=== PATIENT | male | born 1965 | race Caucasian/White ===

== ENCOUNTER 2023-04-21 02:34 | Emergency (ER) | payer MEDICAID, SELFPAY ==
--- NOTE | 2023-04-21 | ECG_ITS ---
Test Reason : SOB Blood Pressure : / mmHG Vent. Rate : 092 BPM Atrial Rate : 092 BPM P-R Int : 148 ms QRS Dur : 094 ms QT Int : 404 ms P-R-T Axes : 066 026 060 degrees QTc Int : 499 ms Artifact in tracing Normal sinus rhythm Prolonged QT Abnormal ECG No previous ECGs available Referred By: Generic ED Physician Electronically Signed By:SARA OLSEN
--- NOTE | ~2023-04-21 | XR_ITS ---
EXAMINATION: XR CHEST CLINICAL INFORMATION: Shortness of breath. COMPARISON: None available. TECHNIQUE: Frontal view of the chest was obtained. FINDINGS: No significant abnormality is noted involving the heart, lungs, mediastinum, bony thorax or soft tissues. XR/XR chest 1V IMPRESSION: Unremarkable examination.
[2023-04-21 02:46] VITALS: BP 154/83; PULSE 112; RESP 19; TEMP 37.1; O2SAT 97; BMI 28.7
--- OUTSIDE RECORDS SUMMARY | 2023-04-21 03:00 | XMS_ITS | Continuity of Care Document ---
Author Name Unknown Organization [facility] Address [address] [place] [address]- Care Team Providers Care Adjunct Writing Instructor Name Role Phone Sourav PAL, Jose Eldridge Primary Care Physician [id number] Date(s): 09/16/21 - 10/21/21 [facility] [address] [place], [place] [id number]- Attending Physician: Bryson Jeffrey MD Admitting Physician: Bryson Jeffrey MD Referring Physician: Nadine Diallo DO Allergies, Adverse Reactions, Alerts Substance Reaction Severity Status codeine DIFFICUTY BREATHING Active Valium Active Ultram Active Vicodin Active traMADol Active Medications Carafate 1 gm oral tablet 1 tablet = 1 Gm, By Mouth, 3 times a day before meals and bedtime, # 90 tablet, 2 Refills, Maintenance, 12/09/14 12:54:10 Start Date: 12/09/14 Status: Ordered Depakote ER 500 mg oral tablet, extended release 3, Daily at bedtime, 0 Refills, Maintenance Start Date: 08/17/11 Status: Ordered Doculase 100 mg oral capsule 1 capsule = 100 mg, By Mouth, 2 times a day, PRN for constipation, # 6 capsule, 0 Refills, Maintenance, 12/16/14 14:02:55, Capsule Start Date: 12/16/14 Stop Date: 12/19/14 Status: Ordered Elavil Tablet 75 mg, By Mouth, Daily at bedtime, Maintenance, 12/08/14 2:06:29 Start Date: 12/08/14 Status: Ordered Flexeril 10 mg oral tablet 1 tablet = 10 mg, By Mouth, Daily at bedtime, 0 Refills, Maintenance Start Date: 08/17/11 Status: Ordered Minipress 2 mg oral capsule 1 capsule = 2 mg, By Mouth, Daily, 0 Refills, Maintenance, 08/17/15 2:05:58 Start Date: 12/08/14 Status: Ordered Protonix 40 mg oral delayed release tablet 1 tablet = 40 mg, By Mouth, 2 times a day, # 60 tablet, 2 Refills, Maintenance, 12/09/14 12:53:17 Start Date: 12/09/14 Status: Ordered Zoloft 100 mg oral tablet 1 tablet = 100 mg, By Mouth, Daily, # 30 tablet, 0 Refills, Maintenance, 12/08/14 2:06:46, Tablet Start Date: 12/08/14 Status: Ordered
--- OUTSIDE RECORDS SUMMARY | 2023-04-21 03:00 | XMS_ITS | Continuity of Care Document ---
Author Name Unknown Organization [facility] Address [address] [place] [address] Care Team Providers Care Environmental Programs Specialist Name Role Phone Sourav PAL, Jose Eldridge Primary Care Physician [phone] [place] [facility] [place] 09/15/21 - 01/08/22 [facility] [address] [place] [address]- Attending Physician: Igor Montemayor MD Admitting Physician: Igor Montemayor MD Referring Physician: Nadine Diallo DO Allergies, Adverse Reactions, Alerts Substance Reaction Severity Status codeine DIFFICUTY BREATHING Active Valium Active Vicodin Active traMADol Active Ultram Active Medications Carafate 1 gm oral tablet [...] mg, By Mouth, Daily, 0 Refills, Maintenance, 12/08/14 2:05:58 Start Date: 12/08/14 Status: Ordered Protonix [...] 2:06:46, Tablet Start Date: 12/08/14 Status: Ordered Care Team Personnel Name: Jose Benjamin MD Address: [address] [place] [address] [address] [place], [place] [address]
--- OUTSIDE RECORDS SUMMARY | 2023-04-21 03:00 | XMS_ITS | Continuity of Care Document ---
Author Name Unknown Organization [facility] Address [address] [place] [address]- Care Team Providers Care Chaser Apprentice Name Role Phone Sourav PAL, Jose Eldridge Primary Care Physician Encounter [facility] [place] Date(s): 12/09/21 - 01/08/22 [facility] [address] [place] [address]- Attending Physician: Raudel Barnett Admitting Physician: AdmtrRaudel Referring Physician: Admtr, Ar8 Allergies, Adverse Reactions, Alerts Substance Reaction Severity [...] 12/08/14 Status: Ordered Care Team Personnel Name: Sourav PAL, Jose Eldridge Address: [address] [place] [address] [address] [place], [place] [address]
--- OUTSIDE RECORDS SUMMARY | 2023-04-21 03:00 | XMS_ITS | Continuity of Care Document ---
Author Name Unknown Organization [facility] Address Unknown Care Team Providers Care Termite Control Technician Name Role Phone Sourav PAL, Jose Eldridge Primary Care Physician [phone] [place] [facility] [place] 09/13/21 - 10/13/21 [facility] Allergies, Adverse Reactions, Alerts Substance Reaction Severity [...]
--- OUTSIDE RECORDS SUMMARY | 2023-04-21 03:00 | XMS_ITS | Continuity of Care Document ---
Author Name Unknown Organization [facility] Address [address] [address] Care Team Providers Care Air Traffic Controller Center Name Role Phone Jose Benjamin MD Primary Care Physician Encounter [facility] [place] Date(s): 05/10/22 - 06/09/22 [facility] [address] [place] [id number] Attending Physician: Raudel Barnett Admitting Physician: AdmtrRaudel [...] 2:06:46, Tablet Start Date: 12/08/14 Status: Ordered Patient Care team information Care Team Personnel Name: Sourav PAL, Jose Eldridge Position: [facility] Infectious Disease MD Member Role: PCP Address: Address: [address] [place] [address] [address] [place] [address]- Name: Susanne Cuadra RN Position: [facility] ED RN W/OE and Tasks Member Role: Primary Care Nurse Care Team Related Persons Name: WALDO HARMAN Address: home [address] [place] [address]
--- OUTSIDE RECORDS SUMMARY | 2023-04-21 03:00 | XMS_ITS | Continuity of Care Document ---
Author Name Unknown Organization [facility] Address [address] [place] [address]- Care Team Providers Care Dairy Clerk Name Role Phone Sourav PAL, Jose Eldridge Primary Care Physician [phone] [place] [facility] [place]): [place]21 [facility] [address] [place] [address]- Attending Physician: Raudel Barnett Admitting Physician: Raudel Barnett Referring Physician: AdmtrRaudel Allergies, Adverse Reactions, Alerts Substance Reaction Severity [...]
--- OUTSIDE RECORDS SUMMARY | 2023-04-21 03:00 | XMS_ITS | Continuity of Care Document ---
Author Name Unknown Organization [facility] Address [address] [place] [phone]- Care Team Providers Care Lead Principal Technical Architect Name Role Phone Sourav PAL, Jose Eldridge Primary Care Physician [phone] Encounter [facility] [place] Date(s): 09/15/21 - 10/15/21 [facility] [address] [place] [address]- Allergies, Adverse Reactions, Alerts Substance Reaction Severity [...]
[2023-04-21 03:02] LABS: MANUAL DIFF FLAG NO
[2023-04-21 03:04] LABS: Basophils Absolute Auto 0.1 X10*3/uL (0.0-0.2); Basophils Percent Auto 0.5 % (0-2); Eosinophils Absolute Auto 0.2 X10*3/uL (0.0-0.4); Eosinophils Percent Auto 0.9 % (0-4); Hemoglobin 12.3 g/dl (14.0-18.0); Imm Gran Abs Auto 0.05 X10*3/uL (0.00-0.03); Imm Gran Pct Auto 0.3 % (0.0-0.4); Lymphocytes Percent Auto 16.4 % (20-40); Mean Corpuscular HGB Conc 33.2 g/dl (31.0-36.0); Mean Corpuscular Hemoglobin 29.9 pg (27.0-33.0); Mean Corpuscular Volume 89.8 fL (80.0-98.0); Mean Platelet Volume 10.7 fL (9.4-12.4); Monocytes Absolute Auto 0.7 X10*3/uL (0.1-1.2); Monocytes Percent Auto 3.6 % (2-11); Neutrophils Absolute Auto 14.2 x10*3/uL (2.0-8.3); Neutrophils Percent Auto 78.3 % (45-73); Platelet Count 240 X10*3/uL (160-400); Red Blood Count 4.12 X10*6/uL (4.60-5.80); Red Cell Distribution Width 13.2 % (11.0-16.0); White Blood Count 18.2 X10*3/uL (4.8-10.8)
[2023-04-21 03:21] LABS: Alanine Aminotransferase 16 U/L (0-40); Albumin Level 4.1 g/dL (3.5-5.0); Alkaline Phosphatase 56 U/L (39-117); Anion Gap 16 (12-20); Aspartate Amino Transferase 22 U/L (5-37); Bilirubin Total 0.5 mg/dL (0.0-1.0); Blood Urea Nitrogen 16 mg/dL (9-16); Calcium 9.5 mg/dL (8.4-10.2); Carbon Dioxide 27 mmol/L (22-29); Chloride 104 mmol/L (96-108); Creatinine Clr Calc Pharmacy 81.9; Estimated Glomerular Filt Rate > 60; Glucose Random 120 mg/dL (60-115); Potassium 4.7 mmol/L (3.3-5.1); Sodium 142 mmol/L (135-145); Total Protein 7.6 g/dL (6.5-8.0)
[2023-04-21 03:29] LABS: Troponin-I High Sensitivity < 2.7 ng/L (<3.5-35.0)
[2023-04-21 03:40] LABS: Influenza A PCR NEGATIVE (Negative); Influenza B PCR NEGATIVE (Negative); Resp Syncy Virus RNA Qual PCR NEGATIVE (Negative); SARS COV2 PCR INHOUSE NEGATIVE (Negative)
--- NOTE | 2023-04-21 04:37 | ED_ITS ---
HPI - SOB/Dyspnea General Chief Complaint: Dyspnea Stated Complaint: drooling, difficult breathing, tremors, cold Time Seen by Provider: 04/21/23 04:32 Source: patient and family Mode of arrival: ambulatory Limitations: no limitations History of Present Illness HPI Narrative: Patient comes to the emergency room accompanied by her daughter. Patient reports that he has been having cough and shortness of breath for the last couple of days, today patient states that he had sudden onset of shortness of breath around 01:55. Patient denies any chest pain. Patient eyes any fever or chills Related Data Previous Rx's Medication Instructions Recorded albuterol sulfate 90 mcg/actuation 2 puff inhalation Q4-6H PRN 04/21/23 aerosol inhaler shortness of breath or wheezing #8.5 grams prednisone 50 mg tablet 50 mg PO DAILY #4 tabs 04/21/23 Allergies Allergy/AdvReac Type Severity Reaction Status Date / Time naproxen [NAPROXEN] Allergy Unknown UNKNOWN Verified 04/21/23 02:48 From FLEXERIL Allergy Mild RASH Uncoded 01/09/20 15:35 Review of Systems 2 Review of Systems: Constitutional : No Weight loss, No Fever, No Chills, No Night Sweats, No Fatigue, No Malaise ENT/Mouth : No Hearing loss, No Ear Pain, No Nasal Congestion, No Sinus Pain, No Hoarseness, No sore throat, No Rhinorrhea, No Swallowing Difficulty Eyes: No Eye Pain, No Swelling, No Redness, No Foreign Body, No Discharge, No Vision Changes Cardiovascular : No Chest Pain, No SOB, No Dyspnea on Exertion, No Orthopnea, No Edema, No Palpitations Respiratory : Complaining of cough, wheezing and shortness of breath and chest tightness but no chest pain Gastrointestinal : No Nausea, No Vomiting, No Diarrhea, No Constipation, No abdominal Pain, No Hematochezia, No Melena Genitourinary : no irregular bleeding, No Dysuria, No Urinary Frequency, No Hematuria, No Urinary Incontinence, No Urgency, No Flank Pain, No Urinary Flow Changes, No Hesitancy Musculoskeletal : No joint pain, No Myalgias, No Joint Swelling Skin : No Skin Lesions, No rash Neuro : No Weakness, No Numbness, No Paresthesias, No Loss of Consciousness, No Dizziness, No Headache Psych : No Anxiety/Panic, No Depression, No SI/HI/AH/VH, No Social Issues, Heme/Lymph: No Bruising, No Bleeding,No Lymphadenopathy Endocrine : No Polyuria, No Polydipsia, No Temperature Intolerance [facility] Past Medical History Medical History COPD (chronic obstructive pulmonary disease) Social History Social History Smoked in Last 30 Days: Yes Use of substances other than those prescribed or required for medical reasons: No Substance Use Type Other:: methadone Advance Directives: No Advance Directives Information Provided: Yes Physical Exam 2 Vital Signs: Vital Signs: Last Vital Signs Temp 98.9 F 04/21/23 05:00 Pulse 80 04/21/23 05:00 Resp 20 04/21/23 05:00 BP 125/52 L 04/21/23 05:00 Pulse Ox 93 04/21/23 05:00 O2 Del Method Room Air 04/21/23 05:00 BMI result Body Mass Index 28.7 Const: Other: Appearance: Alert. Oriented X3. No acute distress. Eyes: Pupils equal, round and reactive to light. ENT: Pharynx normal. Neck: Normal inspection. Neck supple. No lymph nodes noted. No crepitus CVS: Normal heart rate and rhythm. Pulses normal. Normal S1 and S2 Respiratory: Decreased breath sounds, wheezing Abdomen: Soft and nontender. No rigidity. No distention. Skin: Skin warm and dry. Normal skin color. Normal skin turgor. Extremities: No lower extremity edema. No Lacerations. No Rash Neuro: Oriented X 3. No motor deficit. No sensory deficit. Moving all extremities. No slurred speech. CN 2 through 12 grossly intact Psych: calm, cooperative, normal affect Medications Administered Generic Name Dose Route Start Last Admin Trade Name Freq PRN Reason Stop Dose Admin Magnesium Sulfate 2 gm in 50 mls @ 25 mls/hr 04/21/23 04:36 04/21/23 04:56 Magnesium Sulfate/H2o IV 04/21/23 06:35 25 mls/hr ONCE ONE Administration Discontinued Medications Generic Name Dose Route Start Last Admin Trade Name Freq PRN Reason Stop Dose Admin Albuterol Sulfate 10 mg 04/21/23 04:36 04/21/23 04:48 Albuterol Sulfate (0.083%) 2.5 Mg/3 Ml Vial.Neb INHALE 04/21/23 04:37 10 mg ONCE ONE Administration Methylprednisolone Sodium Succinate 125 mg 04/21/23 04:36 04/21/23 04:56 Methylprednisolone Sod Succ 125 Mg/2 Ml Vial IVPUSH 04/21/23 04:37 125 mg ONCE ONE Administration Medical Decision Making Medical Decision Making [facility] Narrative: -my interpretation of labs: White blood cell count 18.2., normal chemistry, normal serology, negative for influenza RSV and COVID -my interpretation of chest x-ray: No infiltrates -patient feeling much better after nebulization treatment and IV meds. Patient was walked around the emergency room, oxygen saturation steady 90%. Patient denies any shortness of breath. On physical exam patient has minimal wheezing but now he is moving air much better than earlier today. Patient states that he feels ready to be discharged. Differential Diagnosis Differential Diagnoses: The differential diagnosis associated with the presentation includes (Asthma, chronic lung disease, pneumonia) Admission/Observation Consideration of admission/observation: Escalation of care including admission/observation considered (Given patient's presentation on arrival and history, admission was considered) Lab Data [facility] Lab Attestation statement: I reviewed the patient's lab results. 04/21/23 02:57 04/21/23 02:57 Labs: Lab Results 04/21/23 04/21/23 Range/Units 02:57 04:48 WBC 18.2 H (4.8-10.8) X10*3/uL RBC 4.12 L (4.60-5.80) X10*6/uL Hgb 12.3 L (14.0-18.0) g/dl Hct 37.0 L (42.0-52.0) % MCV 89.8 (80.0-98.0) fL MCH 29.9 (27.0-33.0) pg MCHC 33.2 (31.0-36.0) g/dl RDW 13.2 (11.0-16.0) % Plt Count 240 (160-400) X10*3/uL MPV 10.7 (9.4-12.4) fL Immature Gran % (Auto) 0.3 (0.0-0.4) % Neut % (Auto) 78.3 H (45-73) % Lymph % (Auto) 16.4 L (20-40) % [place] % (Auto) 3.6 (2-11) % Eos % (Auto) 0.9 (0-4) % Baso % (Auto) 0.5 (0-2) % Lymph # (Auto) 3.0 (1.2-4.9) X10*3/uL [place] # (Auto) 0.7 (0.1-1.2) X10*3/uL Eos # (Auto) 0.2 (0.0-0.4) X10*3/uL Baso # (Auto) 0.1 (0.0-0.2) X10*3/uL Abs Immat Gran (auto) 0.05 H (0.00-0.03) X10*3/uL Absolute Neuts (auto) 14.2 H (2.0-8.3) x10*3/uL Absolute Nucleated RBC 0.000 (0.0-0.012) X10*3/uL Nucleated RBC % (auto) 0.0 (0.0-0.2) /100WBC Sodium 142 (135-145) mmol/L Potassium 4.7 (3.3-5.1) mmol/L Chloride 104 (96-108) mmol/L Carbon Dioxide 27 (22-29) mmol/L Anion Gap 16 (12-20) BUN 16 (9-16) mg/dL Creatinine 1.10 (0.5-1.4) mg/dL Estim Creat Clear Calc 81.9 Estimated GFR > 60 Random Glucose 120 H (60-115) mg/dL Calcium 9.5 (8.4-10.2) mg/dL Total Bilirubin 0.5 (0.0-1.0) mg/dL AST 22 (5-37) U/L ALT 16 (0-40) U/L Alkaline Phosphatase 56 (39-117) U/L Troponin I High Sens < 2.7 (<3.5-35.0) ng/L Total Protein 7.6 (6.5-8.0) g/dL Albumin 4.1 (3.5-5.0) g/dL Urine Color Yellow Urine Appearance Clear Urine pH 6.5 (5.0-9.0) Ur Specific [place] 1.020 (1.005-1.025) Urine Protein Negative (Neg-Trace) mg/dL Urine Glucose (UA) Negative (Negative) mg/dL Urine Ketones Negative (Negative) mg/dL Urine Blood Negative (Negative) Urine Nitrite Negative (Negative) Ur Leukocyte Esterase Negative (Negative) Urine Opiates Screen POSITIVE H (Not Detect) Urine Fentanyl Screen POSITIVE H (Not Detect) Ur Barbiturates Screen Not Detected (Not Detect) Ur Phencyclidine Scrn Not Detected (Not Detect) Ur Amphetamines Screen Not Detected (Not Detect) U Benzodiazepines Scrn POSITIVE H (Not Detect) Urine Cocaine Screen POSITIVE H (Not Detect) U Marijuana (THC) Screen Not Detected (Not Detect) Influenza Type A (PCR) NEGATIVE (Negative) Influenza Type B (PCR) NEGATIVE (Negative) RSV RNA Qual (PCR) NEGATIVE (Negative) SARS-CoV-2 RNA (RT-PCR) NEGATIVE (Negative) Independent Interpretation I performed an independent interpretation of an: Plain X-Ray Radiology Impression Discussion of test interpretation with radiology: I have reviewed the radiologist's reading. Radiologist Impression: FINDINGS: No significant abnormality is noted involving the heart, lungs, mediastinum, bony thorax or soft tissues. XR/XR chest 1V IMPRESSION: Unremarkable examination. Critical Care Time Critical Care Time Critical Care Time: Yes Total Critical Care Time: 60 Attestation: I have personally provided critical care time. Time includes review of lab data, radiology results, discussion with consultants, and monitoring for potential decompensation. Intervention performed as documented. Discharge Plan Discharge Clinical Impression: Chronic lung disease Patient Disposition: Home, Self-Care Instructions: COPD (Chronic Obstructive Pulmonary Disease) (ED) Additional Instructions: Please follow-up with your primary care physician tomorrow. If you have any worsening or new symptoms, please return to the emergency room or call 911 Prescriptions: New albuterol sulfate 90 mcg/actuation HFA aerosol inhaler 2 puff inhalation Q4-6H PRN (Reason: shortness of breath or wheezing) Qty: 8.5 0RF prednisone 50 mg tablet 50 mg PO DAILY Qty: 4 0RF
[2023-04-21] MEDS: Albuterol Sulfate (0.083%) 2.5 MG/3 ML VIAL.NEB 10 MG INHALE (04:48)
[2023-04-21 04:50] VITALS: PULSE 82; RESP 20; O2SAT 95
[2023-04-21] MEDS: Magnesium Sulfate/H2O 2 GM/50 ML PIGGYBACK IV (04:56)
[2023-04-21] MEDS: methylPREDNISolone Sod Succ 125 MG/2 ML VIAL IVPUSH (04:56)
[2023-04-21 04:58] LABS: Appearance Urine Clear; Color Urine Yellow; Glucose Urine UA Negative (Negative); Leukocyte Esterase Urine Negative (Negative); Nitrite Urine Negative (Negative); PH 6.5 (5.0-9.0); Urine Blood Negative (Negative); Urine Ketones Negative (Negative); Urine Protein Negative (Neg-Trace)
--- NOTE | 2023-04-21 04:59 | PC.NURSE ---
breathing treatment in progress. pt medicated per JUN. pt very restless and fidgety in bed
[2023-04-21 05:00] VITALS: BP 125/52; PULSE 80; RESP 20; TEMP 37.2; O2SAT 93
[2023-04-21 05:05] LABS: Amphetamine Screen Urine Not Detected (Not Detect); Barbiturates, Urine Not Detected (Not Detect); Benzodiazepines Screen Urine POSITIVE (Not Detect); Cannabinoid Screen Urine Not Detected (Not Detect); Cocaine Screen Urine POSITIVE (Not Detect); Fentanyl, urine POSITIVE (Not Detect); Opiate Screen Urine POSITIVE (Not Detect); Phencyclidine Screen Urine Not Detected (Not Detect)
--- NOTE | 2023-04-21 05:40 | MHC.EDTECH ---
T/w walked with Pt for ambulation trial and Pt remained 91-93% most of walk with one time o2 going down to 89% briefly. Pt states he felt well during walk. Dr. Solorio/RN aware.
[2023-04-21 05:57] VITALS: BP 118/57; PULSE 99; RESP 16; TEMP 37.3; O2SAT 95
--- NOTE | 2023-04-21 07:37 | ECG_ITS ---
Test Reason : DYSPNEA Blood Pressure : / mmHG Vent. Rate : 093 BPM Atrial Rate : 093 BPM P-R Int : 146 ms QRS Dur : 094 ms QT Int : 404 ms P-R-T Axes : 059 030 057 degrees QTc Int : 502 ms Normal sinus rhythm Prolonged QT Abnormal ECG When compared with ECG of 21-APR-2023 02:48, No significant changes seen Referred By: Leona Solorio Electronically Signed By:SARA OLSEN
== END 2023-04-21 06:06 | disposition home or self-care (01) ==
PROVIDERS: Emergency Provider Emergency Medicine; PCP Family Medicine
DX: J98.4 Other disorders of lung (principal); R06.02 Shortness of breath; R05.9 Cough, unspecified; J44.9 Chronic obstructive pulmonary disease, unspecified; Z20.822 Contact with and (suspected) exposure to COVID-19; Z20.828 Contact with and (suspected) exposure to other viral communicable diseases; Z79.899 Other long term (current) drug therapy
CPT/HCPCS: 0241U; 36415; 71045; 80053; 80307; 81003; 84484; 85025; 93005; 94640; 96365; 96375; 99284; 99285; J2930; J3475

== ENCOUNTER → 2023-04-21 02:48 | Outpatient (BNV) | payer MEDICAID, SELFPAY | PROVIDERS: Emergency Provider Emergency Medicine; PCP Family Medicine; Visit Provider Internal Medicine | DX: I45.81 Long QT syndrome (principal) | CPT/HCPCS: 93010 ==

== ENCOUNTER 2024-02-25 11:55 | Emergency (ER) | payer MEDICAID, SELFPAY ==
--- NOTE | ~2024-02-25 | CT_ITS ---
EXAMINATION: CT HEAD WITHOUT CONTRAST CLINICAL INFORMATION: Multiple mental status question fall. COMPARISON: None available. TECHNIQUE: Contiguous axial imaging was performed from the skull base to vertex without intravenous administration of contrast. This CT examination was performed using dose optimization techniques as appropriate, variously including the following: *Automated exposure control *Adjustment of mA and/or kV according to patient size (this includes techniques or standardized protocols for targeted exams where dose is matched to indication/reason for exam; i.e. extremities or head) *Use of iterative reconstruction technique DLP: 787 mGy-cm FINDINGS: Soft tissue/scalp: Normal. No contusion. Bones/calvarium: Normal. No fracture. Sinuses and mastoid air cells: Clear. There is no intracranial mass hemorrhage or cerebral edema. Ventricles and sulci normal. No extra-axial fluid collection. CT/CT head/brain wo IV con IMPRESSION: No acute intracranial pathology. Electronically signed by: Sudheer Marley MD 02/25/2024 02:37 PM [facility]
--- NOTE | ~2024-02-25 | XR_ITS ---
EXAMINATION: XR CHEST CLINICAL INFORMATION: Overdose shortness of breath COMPARISON: Chest x-ray March 2023 TECHNIQUE: Frontal view of the chest was obtained. FINDINGS: No significant abnormality is noted involving the heart, lungs, mediastinum, bony thorax or soft tissues. XR/XR chest 1V IMPRESSION: Unremarkable examination. Electronically signed by: Sudheer Marley MD 02/25/2024 01:09 PM [facility] [place]
--- NOTE | ~2024-02-25 | CT_ITS ---
EXAMINATION: CT ABDOMEN AND PELVIS WITH CONTRAST CLINICAL INFORMATION: Left lower quadrant pain COMPARISON: None available. TECHNIQUE: Multidetector volumetric images were obtained from the superior aspect of the liver through the pubic symphysis following administration 85 mL of Omnipaque 350 intravenous contrast. Sagittal and coronal reformatted images were obtained on the technologist's workstation. Oral contrast: No This CT examination was performed using dose optimization techniques as appropriate, variously including the following: *Automated exposure control *Adjustment of mA and/or kV according to patient size (this includes techniques or standardized protocols for targeted exams where dose is matched to indication/reason for exam; i.e. extremities or head) *Use of iterative reconstruction technique DLP: 843 mGy-cm FINDINGS: Images are degraded by breathing motion artifact, which limits evaluation of fine detail. LUNG BASES: The visualized lung bases are unremarkable. LIVER, GALLBLADDER, AND BILIARY TREE: The liver is diffusely low in attenuation in keeping with hepatic steatosis, but otherwise normal in size and shape. 5 mm hyperdense focus in the right hepatic lobe (14:15). No biliary ductal dilatation is present. The gallbladder is unremarkable with no evidence of radiopaque gallstones, gallbladder wall thickening, or obvious pericholecystic inflammatory changes. PANCREAS: Punctate scattered calcifications likely represent sequelae of chronic pancreatitis. SPLEEN: Unremarkable. ADRENAL GLANDS: Unremarkable. KIDNEYS AND URETERS: The kidneys are normal in size, shape, and attenuation. No hydronephrosis, hydroureter, or calculi seen. No perinephric stranding. BLADDER: Unremarkable. GASTROINTESTINAL TRACT: Large stool ball in the rectum measures 7.3 x 7.6 cm. No rectal wall thickening or perirectal stranding. A few scattered colonic diverticula without secondary signs of acute diverticulitis. The small and large bowel are otherwise unremarkable. The appendix is nonvisualized but there are no inflammatory changes in the right lower quadrant to suggest acute appendicitis. ABDOMINAL WALL: No significant hernia is appreciated. LYMPH NODES: Multiple prominent mesenteric lymph nodes in the right hemiabdomen, largest of which measures 1.4 x 1.1 x 1.6 cm (14:48). VASCULAR: Atherosclerosis of aorta and its branches. No abdominal aortic aneurysm. PELVIC VISCERA: The prostate and seminal vesicles are unremarkable. OSSEOUS STRUCTURES: Degenerative changes of the spine with postoperative changes of the L4-L5 intervertebral disc space. CT/CT abdomen pelvis w IV con IMPRESSION: 1. Large stool ball in the rectum measures 7.3 x 7.6 cm. No rectal wall thickening or perirectal stranding. 2. Multiple prominent mesenteric lymph nodes in the right hemiabdomen, largest of which measures 1.4 x 1.1 x 1.6 cm. These are nonspecific and may be reactive. 3. Hepatic steatosis. 4. 5 mm hyperdense focus in the right hepatic lobe is nonspecific and may represent a flash filling hemangioma. This can be further evaluated with MRI abdomen with and without contrast Fleischner guidelines were followed. Electronically signed by: Jackie Moeller MD 02/25/2024 02:44 PM EST
[2024-02-25 12:01] VITALS: BP 164/100; PULSE 52; O2SAT 98
[2024-02-25 12:04] VITALS: BP 164/91; PULSE 51; RESP 16; TEMP 36.8; O2SAT 95; BMI 25.8
[2024-02-25] MEDS: Naloxone HCl Nasal 4 MG SPRAY NOSTRILALT (12:54)
--- OUTSIDE RECORDS SUMMARY | 2024-02-25 12:55 | XMS_ITS | Continuity of Care Document ---
Author Organization [facility] ter Address [address] [place] [address]- Care Team Providers Care Fisher Mussel Name Role Phone Sourav PAL, Kelin Eldridge Primary Care Physician Encounter [facility] [place] Date(s): 09/24/23 - 11/03/[address] [address] Attending Physician: Nadine Diallo DO Admitting Physician: Nadine Diallo DO Referring Physician: Nadine Diallo DO Allergies, Adverse [...] information Care Team Personnel Name: Sourav PAL, Kelin Eldridge Position: [facility] Physician - Infectious Disease Member Role: PCP Address: Address: [address] [place] [address] [address] [place] [address]- Name: Susanne Cuadra RN Position: [facility] ED RN W/OE and Tasks Member Role: Primary Care Nurse Care Team Related Persons Name: WALDO HARMAN Address: home [address] [place] [phone]
--- OUTSIDE RECORDS SUMMARY | 2024-02-25 12:56 | XMS_ITS | Continuity of Care Document ---
Author Organization [facility] ter Address [address] [place] [phone]- Care Team Providers Care Anesthesia Director Name Role Phone Sourav PAL, Kelin Eldridge Primary Care Physician Encounter [facility] [place] Date(s): 04/27/23 - 06/04/[address] [id number] Attending Physician: Azar Lao MD Admitting Physician: Azar Lao MD Referring Physician: Nadine Diallo DO Allergies, Adverse Reactions, Alerts Substance Reaction Severity Status codeine DIFFICUTY BREATHING Active Valium Active traMADol Active Ultram Active Vicodin Active Medications Carafate 1 gm oral tablet [...] Personnel Name: Sourav PAL, Kelin Eldridge Position: [facility] Physician - Infectious Disease Member Role: PCP Address: Address: [address] [place] [address] [address] [place] [address]- Name: Susanne Cuadra RN Position: [facility] ED RN W/OE and Tasks Member Role: Primary Care Nurse Care Team Related Persons Name: WALDO HARMAN Address: home [address] [place] [address]
[2024-02-25 12:57] VITALS: BP 138/89; PULSE 52; RESP 16; O2SAT 99
--- NOTE | 2024-02-25 13:12 | ED.OVERDOSE ---
HPI - Overdose General Chief Complaint: Overdose Stated Complaint: POST OVERDOSE AT HOME Time Seen by Provider: 02/25/24 12:26 Source: patient and EMS Mode of arrival: EMS Limitations: other (Poor historian) History of Present Illness ED Provider: Nathan MARIN HPI Narrative: This is a 58-year-old male history of substance use disorder, chronic lung disease presenting to the emergency department status post suspected overdose, patient was found by friend unresponsive family gave 4 mg of intranasal Narcan with some improvement. Family suspects that patient used heroin and fentanyl however patient denies this. He denies alcohol use. Denies suicide intent. Denies any pain at this time just feels tired. Denies chest pain, shortness breath, nausea, vomiting, abdominal pain, headache, vision changes, dizziness and weakness. No falls, trauma or head strike reported. Not on thinners. Related Data Previous Rx's ?Medication ?Instructions ?Recorded albuterol sulfate 90 mcg/actuation 2 puff inhalation Q4-6H PRN 04/21/23 aerosol inhaler shortness of breath or wheezing #8.5 grams prednisone 50 mg tablet 50 mg PO DAILY #4 tabs 04/21/23 Allergies Allergy/AdvReac Type Severity Reaction Status Date / Time naproxen [NAPROXEN] Allergy Unknown UNKNOWN Verified 02/25/24 12:05 From [facility]LEX[facility] Allergy Mild RASH Uncoded 02/25/24 12:05 Review of Systems Review of Systems: Yes all other systems are reviewed and are negative PMFSH Past Medical History Attestation statement: The following information was validated with the patient. Source: old records reviewed Medical History COPD (chronic obstructive pulmonary disease) Social History Social History Advance Directives: No Advance Directives Information Provided: Yes Physical Exam Vital Signs: Vital Signs: Last Vital Signs Temp 98.3 F 02/25/24 12:04 Pulse 52 02/25/24 12:57 Resp 16 02/25/24 12:57 BP 138/89 02/25/24 12:57 Pulse Ox 99 02/25/24 12:57 O2 Del Method Room Air 02/25/24 12:57 BMI result Body Mass Index 25.8 vss Appearance: Alert.? Oriented X3.? No acute distress.? Head: Normocephalic, atraumatic, no step-offs or deformities Eyes: Pupils equal, round and reactive to light.? ENT: Pharynx normal.? Neck: Normal inspection.? Neck supple.? CVS: Normal heart rate and rhythm.? Pulses normal.? Respiratory: No respiratory distress.? Breath sounds normal.? Abdomen: Soft and nontender.? Skin: Skin warm and dry.? Normal skin color.? Normal skin turgor.? Extremities: No lower extremity edema.? No calf ttp. 5/5 strength to bilateral upper and lower extremities Neuro: Oriented X 3.? No motor deficit.? No sensory deficit. CN 2-12 intact Course Reevaluation(s) Reevaluation #1: I was able to speak to patient's family who report that friend admits that he was using drugs, he skipped his methadone dosing for the past few days. Over the past few days he has been complaining of left lower quadrant abdominal discomfort. The methadone clinic told him that they would not dose him until he sees a doctor to look into his medical symptoms of left lower quadrant pain. He does not like going to the doctors. According to daughter patient likely use drugs, he was Narcan with 4 mg of intranasal Narcan by a friend than the friend called 911. She does want us to look into the left lower quadrant abdominal pain. Patient is a very poor historian he is not answering many of my questions. Majority of history obtained from family and EMS. Head CT and Abd CT ordered Time: 13:26 Reevaluation #2: CT abdomen with large stool ball in the rectum measuring 7.3 x 7.6 cm. No rectal wall thickening or perirectal stranding. Multiple prominent mesenteric lymph nodes. Hepatic steatosis will have him follow-up with GI. 5 mm hyperdense focus in the right hepatic lobe again GI will follow. CT head no acute intracranial pathology. Will have patient ambulate. He appears to be better saturating well on room air. Not needing Narcan. Will discharge home with home Narcan. Educated patient on diagnosis and treatment plan, answered all question, patient verbalizes understanding. At this time patient will be discharged home, advised to return with new or worsening symptoms. Educated on worrisome signs and symptoms and when to return. At this time I feel comfortable discharge home. Time: 16:01 Medications Administered Discontinued Medications Generic Name Dose Route Start Last Admin Trade Name Sadie PRN Reason Stop Dose Admin Iohexol 85 ml 02/25/24 14:09 02/25/24 14:09 Iohexol 350 Mg/Ml 100 Ml Infus..Btl IV 02/25/24 14:10 85 ml ONCE ONE Administration Naloxone HCl 4 mg 02/25/24 12:26 02/25/24 12:54 Naloxone Hcl Nasal 4 Mg [place] NOSTRILALT 02/25/24 12:27 4 mg ONCE ONE Administration Naloxone HCl 8 mg 02/25/24 14:46 02/25/24 15:09 Naloxone Hcl Nasal Take Home 4 Mg [place] NOSTRILALT 02/25/24 14:47 Not Given ONCE ONE Medical Decision Making Medical Decision Making [facility] Narrative: 1318 58-year-old male presents status post suspected opiate overdose. Given Narcan with some improvement of symptoms. Physical exam benign History and physical exam concerning for opiate overdose. No signs of acute respiratory distress, pneumothorax, flash pulmonary edema. Low suspicion for electrolyte abnormalities. Will rule out alcohol use. Will also rule out polysubstance abuse. Plan labs, imaging, monitoring Narcan was ordered on arrival as patient did appears slightly lethargic. Differential Diagnosis Differential Diagnoses: The differential diagnosis associated with the presentation includes (History and physical exam concerning for opiate overdose. No signs of acute respiratory distress, pneumothorax, flash pulmonary edema. Low suspicion for electrolyte abnormalities. Will rule out alcohol use. Will also rule out polysubstance abuse.) Admission/Observation Consideration of admission/observation: Escalation of care including admission/observation considered Lab Data [facility] Lab Attestation statement: I reviewed the patient's lab results. 02/25/24 13:46 02/25/24 13:19 Labs: Lab Results 02/25/24 02/25/24 02/25/24 Range/Units 13:19 13:25 13:46 WBC 12.2 H (4.8-10.8) X10*3/uL RBC 4.34 L (4.60-5.80) X10*6/uL Hgb 12.8 L (14.0-18.0) g/dl Hct 38.1 L (42.0-52.0) % MCV 87.8 (80.0-98.0) fL MCH 29.5 (27.0-33.0) pg MCHC 33.6 (31.0-36.0) g/dl RDW 14.0 (11.0-16.0) % Plt Count 294 (160-400) X10*3/uL MPV 10.2 (9.4-12.4) fL Immature Gran % (Auto) 0.2 (0.0-0.4) % Neut % (Auto) 75.5 H (45-73) % Lymph % (Auto) 17.5 L (20-40) % [place] % (Auto) 3.0 (2-11) % Eos % (Auto) 2.9 (0-4) % Baso % (Auto) 0.9 (0-2) % Lymph # (Auto) 2.1 (1.2-4.9) X10*3/uL [place] # (Auto) 0.4 (0.1-1.2) X10*3/uL Eos # (Auto) 0.4 (0.0-0.4) X10*3/uL Baso # (Auto) 0.1 (0.0-0.2) X10*3/uL Abs Immat Gran (auto) 0.03 (0.00-0.03) X10*3/uL Absolute Neuts (auto) 9.2 H (2.0-8.3) x10*3/uL Absolute Nucleated RBC 0.000 (0.0-0.012) X10*3/uL Nucleated RBC % (auto) 0.0 (0.0-0.2) /100WBC VBG pH 7.44 H (7.32-7.43) VBG pCO2 39 mmHg VBG pO2 147 mmHg VBG HCO3 27 H (22-26) mmol/L VBG O2 Saturation 100.0 % VBG Base Excess 3.3 mmol/L Sodium 139 (135-145) mmol/L Potassium 5.0 (3.3-5.1) mmol/L Chloride 106 (96-108) mmol/L Carbon Dioxide 22 (22-29) mmol/L Anion Gap 16 (12-20) BUN 17 H (9-16) mg/dL Creatinine 0.87 (0.5-1.4) mg/dL Estim Creat Clear Calc 102.0 Estimated GFR > 60 Random Glucose 157 H (60-115) mg/dL Calcium 9.6 (8.4-10.2) mg/dL Magnesium 1.9 (1.6-2.6) mg/dL Total Bilirubin 0.2 (0.0-1.0) mg/dL AST 27 (5-37) U/L ALT 26 (0-40) U/L Alkaline Phosphatase 59 (39-117) U/L Total Protein 7.9 (6.5-8.0) g/dL Albumin 4.1 (3.5-5.0) g/dL Ethyl Alcohol < 10 mg/dL Independent Interpretation I performed an independent interpretation of an: Plain X-Ray (XR/XR chest 1V IMPRESSION: Unremarkable examination.) Radiology Impression Discussion of test interpretation with radiology: I have reviewed the radiologist's reading. Independent Historian Clinical information obtained from an independent historian. History obtained from or confirmed by: Other (daughter ) External Record Review External record reviewed: Office record, Outpatient record and Prior outpatient radiology Critical Care Time Critical Care Time Critical Care Time: Yes Total Critical Care Time: 35 Attestation: I attest to this time spent taking care of the patient, obtaining history, physical, reviewing labs, imaging, treatment of patients condition +/- specialist/hospitalist consult Discharge Plan Discharge Clinical Impression: Drug overdose, Lymph nodes enlarged, Constipation, Liver hemangioma Patient Disposition: Home, Self-Care Instructions: Adult Overdose (ED) Additional Instructions: Take your medications as prescribed. If you were prescribed antibiotics today, it is important that you take your medication to their entirety, do not skip any doses, do not finish them early. Follow-up with your primary care provider this week. Return to the emergency department with new or worsening symptoms. Such as fevers, chills, chest pain, shortness of breath, nausea, vomiting, dizziness, headache, vision changes, lethargy In case of emergency call [address] CT/CT abdomen pelvis w IV con IMPRESSION: 1. Large stool ball in the rectum measures 7.3 x 7.6 cm. No rectal wall thickening or perirectal stranding. 2. Multiple prominent mesenteric lymph nodes in the right hemiabdomen, largest of which measures 1.4 x 1.1 x 1.6 cm. These are nonspecific and may be reactive. 3. Hepatic steatosis. 4. 5 mm hyperdense focus in the right hepatic lobe is nonspecific and may represent a flash filling hemangioma. This can be further evaluated with MRI abdomen with and without contrast CT/CT head/brain wo IV con IMPRESSION: No acute intracranial pathology. XR/XR chest 1V IMPRESSION: Unremarkable examination. Please carry Narcan on you at all times, this can save her life. Prescriptions: No Action albuterol sulfate 90 mcg/actuation HFA aerosol inhaler 2 puff inhalation Q4-6H PRN (Reason: shortness of breath or wheezing) Qty: 8.5 0RF prednisone 50 mg tablet 50 mg PO DAILY Qty: 4 0RF [place] [facility] [place] [facility] [place] Group[place] - 1 day Center,[facility] [Primary Care Provider] - 2 days Print Language: Malian
[2024-02-25 13:26] LABS: Venous Blood Gas Refer to POC result
[2024-02-25 13:30] LABS: VBG Base Excess 3.3 mmol/L; VBG HCO3 27 mmol/L (22-26); VBG pCO2 39 mmHg; VBG pH 7.44 (7.32-7.43); VBG pO2 147 mmHg
[2024-02-25 13:52] LABS: Basophils Absolute Auto 0.1 X10*3/uL (0.0-0.2); Basophils Percent Auto 0.9 % (0-2); Eosinophils Absolute Auto 0.4 X10*3/uL (0.0-0.4); Eosinophils Percent Auto 2.9 % (0-4); Hematocrit 38.1 % (42.0-52.0); Hemoglobin 12.8 g/dl (14.0-18.0); Imm Gran Abs Auto 0.03 X10*3/uL (0.00-0.03); Imm Gran Pct Auto 0.2 % (0.0-0.4); Lymphocytes Absolute Auto 2.1 X10*3/uL (1.2-4.9); Lymphocytes Percent Auto 17.5 % (20-40); Mean Corpuscular HGB Conc 33.6 g/dl (31.0-36.0); Mean Corpuscular Hemoglobin 29.5 pg (27.0-33.0); Mean Corpuscular Volume 87.8 fL (80.0-98.0); Mean Platelet Volume 10.2 fL (9.4-12.4); Monocytes Absolute Auto 0.4 X10*3/uL (0.1-1.2); Neutrophils Absolute Auto 9.2 x10*3/uL (2.0-8.3); Neutrophils Percent Auto 75.5 % (45-73); Platelet Count 294 X10*3/uL (160-400); Red Blood Count 4.34 X10*6/uL (4.60-5.80); White Blood Count 12.2 X10*3/uL (4.8-10.8)
[2024-02-25 13:54] LABS: Alanine Aminotransferase 26 U/L (0-40); Albumin Level 4.1 g/dL (3.5-5.0); Alkaline Phosphatase 59 U/L (39-117); Anion Gap 16 (12-20); Aspartate Amino Transferase 27 U/L (5-37); Bilirubin Total 0.2 mg/dL (0.0-1.0); Blood Urea Nitrogen 17 mg/dL (9-16); Calcium 9.6 mg/dL (8.4-10.2); Carbon Dioxide 22 mmol/L (22-29); Chloride 106 mmol/L (96-108); Estimated Glomerular Filt Rate > 60; Ethanol < 10 mg/dL; Glucose Random 157 mg/dL (60-115); Magnesium 1.9 mg/dL (1.6-2.6); Sodium 139 mmol/L (135-145); Total Protein 7.9 g/dL (6.5-8.0)
[2024-02-25] MEDS: iohexoL 350 MG/ML 100 ML INFUS..BTL 85 ML IV (14:09)
[2024-02-25 16:03] VITALS: BP 150/84; PULSE 56; RESP 18; TEMP 36.8; O2SAT 95
[2024-02-25 16:49] VITALS: BP 150/84; PULSE 56; RESP 18; TEMP 36.8; O2SAT 95
[2024-02-26 04:03] LABS: HBc Num1 0.12 S/CO (0.00-0.79); HBsAGNum1 0.35 S/CO (0.00-0.99); Hepatitis A Antibody IgM 0.17 Index (0-0.79); Hepatitis B Core Antibody Nonreactive (Nonreactive); Hepatitis B Surface Antigen Negative (Negative); ~HepC Num1 0.15 S/CO (0.00-0.79); ~Hepatitis A Antibody IgM Nonreactive (Nonreactive); ~Hepatitis B Surface Antibody NONREACTIVE (Nonreactive); ~Hepatitis C Antibody Nonreactive (Nonreactive)
== END 2024-02-25 16:49 | disposition home or self-care (01) ==
PROVIDERS: Physician Assistant; Emergency Provider Emergency Medicine Emergency Medical Services
DX: T40.1X1A Poisoning by heroin, accidental (unintentional), initial encounter (principal); R40.4 Transient alteration of awareness; Y92.89 Other specified places as the place of occurrence of the external cause; R59.9 Enlarged lymph nodes, unspecified; K59.00 Constipation, unspecified; R10.2 Pelvic and perineal pain; R10.32 Left lower quadrant pain; D18.09 Hemangioma of other sites; R07.89 Other chest pain; R51.9 Headache, unspecified; Z79.899 Other long term (current) drug therapy
CPT/HCPCS: 36415; 70450; 71045; 74177; 80053; 80307; 82803; 83735; 85025; 86704; 86706; 86709; 86803; 87340; 99283; 99284; Q9967